=== PATIENT | male | born 1960 | race African-American/Black ===

== ENCOUNTER 2017-07-21 08:10 | Emergency (ER) | payer MEDICAID ==
[~2017-07-21] VITALS: Ht 188 cm; Wt 120.0 kg
[2017-07-21] MEDS ORDERED: ACETAMINOPHEN 325MG TABLET PO ONE (13:15)
[2017-07-21 14:01] VITALS: BP 128/76
== END 2017-07-21 14:02 | disposition home or self-care (01) ==
LOC: ER 08:59
DX: R07.9 Chest pain, unspecified (principal); J45.909 Unspecified asthma, uncomplicated; I10 Essential (primary) hypertension; F17.290 Nicotine dependence, other tobacco product, uncomplicated; Z88.6 Allergy status to analgesic agent; Z98.890 Other specified postprocedural states
CPT/HCPCS: 36415; 84484; 93005; 99285; 99406; Z7610